=== PATIENT | female | born 1965 | race Two or more races ===

== ENCOUNTER → 2024-09-13 | Outpatient (CLI) | payer BC, SELFPAY ==
--- NOTE | 2024-09-13 13:30 | XR_ITS ---
Examination: MRI of brain without intravenous contrast. MRI brain with intravenous contrast. Date and time of exam:September 13, 2024 1436 hours INDICATIONS: Blurred vision and vertigo 6 months Technique: Multiple axial and sagittal images of the brain to been obtained. Siemens high-resolution 1.52 [employer] short bore scanner utilized. Sagittal sections, T1 weighted images, TR 500, TE 14, are performed. Axial sections proton-density and T2-weighted images have been obtained. Inversion recovery axial images, TR 9260, TE 111, TR 2500. Diffusion weighted images, axial sections, TR 4800, TE 128, B value 1000. Axial sections, ADC map, TR 4800, TE 128. Axial and coronal images were also obtained post 18 cc gadolinium administered intravenously. Findings:: Enlargement of the sella turcica is not present. The optic chiasm and infundibular stalk are not remarkable. There is no localized enlargement of the medulla or hector. Fourth ventricle and cerebellar tonsils appear normal in position. No subacute area of hemorrhage density is seen. Fourth ventricle is midline. Mass in the cerebellopontine angle region is not evident. 7th and 8th nerve complexes exhibit symmetry Globes are symmetrical Orbital musculature including medial lateral rectus muscles do not exhibit abnormality Increased white matter signal is evident, scattered punctate foci increased signal in the white matter Effacement of the cortical sulcal markings is not identified. Mass effect upon the ventricular system is not identified. Diffusion-weighted images demonstrate no focus of restricted diffusion Contrast images demonstrate no abnormal cerebellar or cerebral enhancement Impression: Scattered punctate foci increased signal in the white matter, demyelinating disease pattern
== END | disposition home or self-care (01) ==
PROVIDERS: PCP Physician Assistant; Referring Provider Physician Assistant; Visit Provider Physician Assistant
DX: R90.82 White matter disease, unspecified (principal)
CPT/HCPCS: 70553; A9579

== ENCOUNTER → 2024-12-05 | Outpatient (CLI) | payer BC, SELFPAY ==
--- NOTE | 2024-12-05 16:41 | XR_ITS ---
Examination: MRI cervical spine, without intravenous contrast. MRI cervical spine , with intravenous contrast. Exam date and time: December 05, 2024, 1703 hours, comparison August 15 thousand 16 INDICATIONS: Diagnosis demyelinating disease, neck pain dizziness blurred vision 6 months Technique: Multiple axial, sagittal and coronal images of the cervical spine have been obtained with the Siemens high-resolution 1.5 De[employer]ra MRI scanner. Images obtained included T2 weighted fat suppressed sagittal sections, TR 3500, TE 46, T2 weighted coronal fat suppressed images, TR 3050, TE 84, T2-weighted transverse fat suppressed images, TR 30-60, TE 63, proton density transverse images, TR 4720, TE 46, and T1 weighted coronal images, TR 560, TE 13. Axial, sagittal and coronal images are obtained post intravenous injection 18 cc gadolinium. Findings: Adequate alignment cervical vertebral bodies on the lateral view There is considerable patient motion on the axial images and postcontrast images Postcontrast images do not demonstrate abnormal osseous or cervical cord enhancement Precontrast images do demonstrate subtle increased signal in the cervical cord No cervical fracture Mild disc narrowing C5-C6 C5-C6 4 mm central left paracentral osteophyte disc complex with advanced bilateral neural foraminal stenosis IMPRESSION: Study is significantly limited secondary to patient motion Precontrast images demonstrate diffuse increased signal in the cervical cord seen with demyelinating disease C5-C6 4 mm central left paracentral osteophyte disc complex with advanced bilateral neural foraminal stenosis
== END | disposition home or self-care (01) ==
PROVIDERS: PCP Physician Assistant; Referring Provider Physician Assistant; Visit Provider Physician Assistant
DX: G37.9 Demyelinating disease of central nervous system, unspecified (principal); M25.78 Osteophyte, vertebrae; M48.02 Spinal stenosis, cervical region
CPT/HCPCS: 72156; A9577